=== PATIENT | male | born 1985 | race Two or more races ===

== ENCOUNTER 2024-06-13 20:47 | Emergency (ER) | payer BC, MEDICAID ==
[~2024-06-13] VITALS: Ht 172.7 cm; Wt 81.4 kg
[~2024-06-13 20:47] MED LIST: ACET-1008 PO; HYDR1TAB PO; IBUP-1051 PO; PENI500T2 PO
[2024-06-13 20:53] VITALS: BP 140/85; PULSE 98; RESP 20; O2SAT 98
[2024-06-13] MEDS ORDERED: NEOM10SO7 RIGHT EAR (21:21)
[2024-06-13 21:28] VITALS: TEMP 98.4
== END 2024-06-13 21:29 | disposition home or self-care (01) ==
LOC: ER 20:47
DX: H60.8X1 Other otitis externa, right ear (principal); Z79.1 Long term (current) use of non-steroidal anti-inflammatories (NSAID); Z79.899 Other long term (current) drug therapy; Z56.0 Unemployment, unspecified
CPT/HCPCS: 99283

== ENCOUNTER 2024-09-28 10:27 | Emergency (ER) | payer MEDICAID ==
[~2024-09-28] VITALS: Ht 170.2 cm; Wt 86.7 kg
[~2024-09-28 10:27] MED LIST changes: +NEOM10SO7 RIGHT EAR
[2024-09-28] MEDS ORDERED: IBUP-1985 PO (12:04)
[2024-09-28 12:16] VITALS: BP 148/86; PULSE 96; RESP 18; TEMP 98.4; O2SAT 97
[2024-09-28] MEDS: ibuprofen 200mg tablet PO ONE (12:16)
== END 2024-09-28 12:17 | disposition home or self-care (01) ==
LOC: ER 10:28
DX: Z02.79 Encounter for issue of other medical certificate (principal); M77.9 Enthesopathy, unspecified; Z88.8 Allergy status to other drugs, medicaments and biological substances
CPT/HCPCS: 99282

== ENCOUNTER 2025-04-17 03:54 | Emergency (ER) | payer MEDICAID ==
[~2025-04-17] VITALS: Ht 180.3 cm; Wt 66.2 kg
[~2025-04-17 03:54] MED LIST changes: +IBUP600T52 PO
[2025-04-17 04:01] VITALS: BP 150/65; PULSE 86; RESP 15; TEMP 96.9; O2SAT 99
--- NOTE | 2025-04-17 04:12 | Physician Documentation ---
History of Present Illness ~ Chief Complaint: Rash Stated Complaint: COVID Time Seen by MD: 04:05 Primary Medical Doctor: [facility] HPI 39-year-old gentleman presents for evaluation of those little dots rash on his bilateral forearms that has been present for about a week. When he demonstrates it, the rash is gone. He also states that he tested positive for COVID a week ago. Continues to experience chills and sore throat. Denies any fever. Denies headache. Denies chest pain or difficulty breathing. No nausea, vomiting, diarrhea, abdominal pain. It is not clear why the gentleman waited a a week to be evaluated, and come in in at 4:00 a.m. in the morning on a day that the rash has disappeared. He denies any concerns for drug use, alcohol or illicit substances use Medication Reconciliation Allergies: Coded Allergies: aripiprazole (Verified Allergy, Unknown, 04/17/25) buspirone (Verified Allergy, Unknown, 09/28/24) olanzapine (Verified Allergy, Unknown, 09/28/24) paliperidone (Verified Allergy, Unknown, 04/17/25) Scheduled Acetaminophen* (Tylenol*), MG PO PRN, (Reported) Hydrocodone/Acetaminophen (Vicodin 5-500 Tablet), 1-2 TAB PO Q6H Ibuprofen* (Motrin*), 800 MG PO TID Neomy Sulf/Polymyx B Sulf/Hc (Cortisporin Otic Solution), 4 DROP RIGHT EAR Q6H Penicillin V Potassium* (Penicillin VK*), 500 MG PO Q8H Scheduled PRN Ibuprofen (Ibuprofen), 1 TAB PO Q6H PRN for pain Past Medical History Past Medical History: No Pertinent History Past Surgical History: no surgical history Alcohol Use: None Drug Use: none Lives with: Family Lives In: Home Occupation: unemployed Review of Systems ROS 10 point review of systems was performed and unless noted above in HPI is negative for acute process/complaint. Physical Exam Vital Signs: Temperature: 96.9, Source: Temporal, Heart Rate: 86, Respiratory Rate: 15, BP: 150/65, Pulse Oximetry: 99, Weight: 66.150 Physical Exam Physical examination: GENERAL: Awake, alert, oriented, GCS 15, no apparent distress, non-toxic appearing, answers questions, follows commands appropriately. Examined in triage, disheveled and malodorous. HEENT: Atraumatic, normocephalic, pupils equal, extraocular muscles intact Active gross movements, sclerae anicteric, mucus membranes moist, no stridor. NECK: Midline, no JVD CARDIOVASCULAR: Good skin perfusion without evidence of pallor, mottling. PULMONARY: Nonlabored, symmetric chest rise, no audible wheezing, no accessory muscle use, no respiratory distress, speaking in full sentences. GASTROINTESTINAL: Not distended. NEUROLOGIC: Lucid with normal mental status. Normal facial symmetry. Moves all extremities symmetrically and with purpose. No truncal ataxia. Speech is fluid without evidence of dysarthria or aphasia, no focal deficits appreciated. EXTREMITIES: Acute deformities Skin: warm, dry. There is no evidence of rash at all, any wear on the exposed body. No maculopapular rash, no vesicular rash, no umbilicated rash. No erythema. No calor. PSYCHIATRIC: Normal affect, normal insight, normal concentration. Focused exam: [] Progress Results/Orders Results/Orders Vital Signs 04/17/25 04:01 Temp 96.9 Pulse 86 Resp 15 B/P (MAP) 150/65 Pulse Ox 99 Medical Decision Making Findings Facility Status: ED Holds, RME process The plan was discussed with the patient, who demonstrates clear understanding of the plan and is in agreement with the plan unless otherwise noted in the chart. All questions have been answered, all concerns were addressed unless otherwise documented. I was available throughout their ED stay for frequent reassessment and questions. Differential Diagnoses (considered and possible or likely): [Rash, possibly related to COVID infection, COVID-19 infection, clinically no evidence of COVID- 19 pneumonia, hypoxia, respiratory distress.] ??Differential Diagnoses (considered and unlikely, not requiring evaluation currently): [Denies any other complaints] MDM Data Please see HPI for the following: Independent Historians and external Records Review. Historian: [Patient] Independent Historians: ?[Record review] Medication Management: [Reviewed medication list] Social History and determinants: [Reviewed] Please see the body of the note for the following: Any independent interpretations of ECG, imaging studies. All vitals signs/haemodynamics, ordered tests were independently reviewed and interpreted by myself. Nursing triage complaint and vitals reviewed, additional nursing notes were reviewed as available and I agree unless otherwise noted or documented in contradiction in the chart Vital Signs: Independently reviewed Labs: Independently interpreted Imaging: Independently interpreted Old Medical Records: Independently reviewed, see HPI for relevant summary and information Pulse Oximetry: [98%] interpreted as [normal on room air] by me [Concrete Pile Driver Operator: [Regular Rate, Regular rhythm, no ectopy, NSR] reviewed and interpreted by me] Additionally notably showing: [Hemodynamically stable] Tests considered but not ordered include: [Hematologic workup and imaging has been considered but does not appear to be necessary given clinical nature of diagnosis] Social Determinants of Health Impact: Patient was evaluated in [facility] [place] to healthcare due to below par ratio of patient to medical providers. [] Comorbid Conditions Impacting Present Evaluation and Care/Treatment: [Possible psychiatric disease given his allergy to multiple psychiatric medications] Management Discussions with other Healthcare Providers: [None] Treatment and Disposition Medication Management (Given or considered): []. See EMR for details Consideration for Hospitalization/Escalation/Deescalation of Care: Admission for observation has been considered, [however the patient is able to tolerate p.o., their symptoms are controlled, they are able to rely on oral medications, and their chief complaint/diagnosis can be managed on outpatient basis.] ?ED Course:?[No clinical deterioration. Hemodynamically stable. Chief complaint is not present on physical examination.] ?Shared decision making:?[Patient is hemodynamically stable for discharge home with follow with their primary care provider. [ ] Specific and cautious return precautions provided and discussed with full understanding. Any incidental findings were also discussed and follow up recommendations given. [] All questions answered. Patient/family were able to verbalize back return precautions. Patient/family agree to plan. Copies of imaging and laboratory studies were provided.] Code status:?FULL Please see the full Electronic Medical Record for full details of nursing documentation, medications list, other records of complete past medical history and conditions, vital signs, laboratory studies, and any radiologic study interpretations by radiologists. Portions of this note were completed using [employer] dictation software and as a result there may exist minor errors in spelling. I have reviewed elements of past family and social history and agree as included in note. Departure Disposition: HOME / SELF CARE / HOMELESS Impression: Primary Impression: Rash Additional Impression: COVID-19 virus infection Condition: Stable Discharge Instructions: Rash, Adult Additional Instructions: Today you came to the emergency department at 4:00 a.m. in the morning to be evaluated for the rash you had for the last week. During physical examination, it appears that the rash has completely resolved. Without seeing the rash it is impossible to determine its origin, but given the fact that you currently have COVID-19 infection, it could possibly be related to COVID-19 and represent a viral rash. You were worried that you have chicken pox, however YOUR were description of the rash is not consistent with chicken pox, and the fact that rash has a resolved also not consistent with a course of disease of varicella. You are likely still sick with the COVID-19 disease. Continue supportive measures, drink plenty of water. Should you decide to recheck yourself and see whether you are still positive, please proceed to the grocery store or a pharmacy and purchase an [id number] COVID-19 test. Referrals: NO PRIMARY CARE PROVIDER (PCP) Education Educated: Patient Educated regarding: diagnosis, treatment, prognosis, need for follow up Signature Scribe Signature: No scribe Attestation: This note accurately reflects clinical decisions, work performed by myself, Jordan Joya, JORDAN MCINTYRE DO Apr 17, 2025 04:12
== END 2025-04-17 04:28 | disposition home or self-care (01) ==
LOC: ER 03:54
DX: R21 Rash and other nonspecific skin eruption (principal); U07.1 COVID-19
CPT/HCPCS: 99282